=== PATIENT | female | born 1935 | race Caucasian/White ===

== ENCOUNTER 2019-11-27 12:01 | Inpatient (IN) | payer MEDICARE, BC ==
[2019-11-27 12:37] LABS: ABSOLUTE LYMPHOCYTES (AUTO) 0.9 10^3/uL (0.5-4.7); ABSOLUTE MONOCYTES (AUTO) 0.4 10^3/uL (0.1-1.4); BASOPHILS % (AUTO) 0.4 % (0-2); EOSINOPHILS % (AUTO) 0.6 % (0-6); HEMATOCRIT 37.2 % (36.0-47.0); HEMOGLOBIN 12.5 g/dL (12.0-15.5); LYMPHOCYTES % (AUTO) 20.3 % (13-45); MEAN CORPUSCULAR HEMOGLOBIN 32.6 pg (27.0-33.4); MEAN CORPUSCULAR HGB CONC 33.7 g/dL (32.0-36.0); MEAN CORPUSCULAR VOLUME 97 fl (80-97); MONOCYTES % (AUTO) 8.6 % (3-13); PLATELET COUNT 171 10^3/uL (150-450); RED BLOOD COUNT 3.84 10^6/uL (3.72-5.28); RED CELL DISTRIBUTION WIDTH 14.8 % (11.5-14.0); SEGMENTED NEUTROPHILS % (AUTO) 70.1 % (42-78); TOTAL CELLS COUNTED % (AUTO) 100 %; WHITE BLOOD COUNT 4.2 10^3/uL (4.0-10.5)
[2019-11-27 12:54] LABS: ALBUMIN 4.2 g/dL (3.5-5.0); ALKALINE PHOSPHATASE 101 U/L (38-126); ASPARTATE AMINO TRANSFERASE 41 U/L (14-36); BILIRUBIN,TOTAL 0.5 mg/dL (0.2-1.3); BLOOD UREA NITROGEN 19 mg/dL (7-20); CALCIUM 9.6 mg/dL (8.4-10.2); CARBON DIOXIDE 30 mmol/L (22-30); CREATINE KINASE 59 U/L (30-135); GLUCOSE 112 mg/dL (75-110); POTASSIUM 4.5 mmol/L (3.6-5.0); TOTAL PROTEIN 7.3 g/dL (6.3-8.2)
[2019-11-27 13:00] LABS: CHLORIDE 105 mmol/L (98-107)
[2019-11-27 13:03] LABS: ANION GAP 4 (5-19)
[2019-11-27 13:06] LABS: CREATINE KINASE MB 1.44 ng/mL (<4.55)
[2019-11-27 13:08] LABS: TROPONIN I < 0.012 ng/mL
--- NOTE | 2019-11-27 13:15 | ER Document Report ---
ED General - General Chief Complaint: Weakness Stated Complaint: WEAKNESS Time Seen by Provider: 11/27/19 13:13 Primary Care Provider: MITRA KITCHEN MD [Primary Care Provider] - Follow up as needed Notes: 84-year-old female presents the emergency department stating that when she woke up this morning around 8 AM she tried to get out of bed but was unable to stand because her legs were so weak and she states her toes felt "sticky." Patient states she went back to bed and then tried getting up again a little bit later in her leg still felt too weak so she came to the emergency department. Patient does state that she is feeling somewhat better now but not completely better. States she is still not walking normally. Denies any current numbness or tingling, denies any lateralizing weakness. Denies any blurry vision or slurred speech. Patient's daughter states the patient fell down some steps landing on her buttocks at the end of August, she is concerned that the patient should have had an MRI then even though the patient's x-rays were negative. Patient denies saddle anesthesia, bowel or bladder dysfunction or difficulty raising her feet. Admits some persistent pain in her hips since the fall. - Related Data Allergies/Adverse Reactions: Sulfa (Sulfonamide Antibiotics) Allergy (Verified 03/01/13 14:37) Past Medical History - General Information source: Patient - Social History Smoking Status: Never Smoker Frequency of alcohol use: None Drug Abuse: None Family History: Other - history of kidney stones - Past Medical History Cardiac Medical History: Reports: Hx Hypercholesterolemia, Hx Hypertension Pulmonary Medical History: Reports: Hx Bronchitis - chronic Neurological Medical History: Reports: Hx Migraine GI Medical History: Reports: Hx Gastroesophageal Reflux Disease Past Surgical History: Reports: Hx Hysterectomy - Immunizations Hx Diphtheria, Pertussis, Tetanus Vaccination: Yes Review of Systems - Review of Systems Constitutional: See HPI, Weakness EENT: No symptoms reported Musculoskeletal: See HPI Neurological/Psychological: See HPI -: Yes All other systems reviewed and negative Physical Exam - Vital signs Vitals: Temp Pulse Resp BP Pulse Ox 97.3 F 66 14 146/75 H 99 11/27/19 12:15 11/27/19 12:15 11/27/19 12:15 11/27/19 12:15 11/27/19 12:15 Interpretation: Hypertensive - Notes Notes: GENERAL: Alert, interacts well. No acute distress. HEAD: Normocephalic, atraumatic EYES: Pupils equal, round and reactive to light, extraocular movements intact. ENT: Oral mucosa moist, tongue midline. NECK: Full range of motion, supple, trachea midline. LUNGS: Clear to auscultation bilaterally, no wheezes, rales or rhonchi, no respiratory distress. HEART: Regular rate and rhythm, no murmurs, gallops, rubs. ABDOMEN: Soft, nontender, nondistended, bowel sounds present in all 4 quadrants. EXTREMITIES: Moves all 4 extremities spontaneously, no edema, radial and dorsalis pedis pulses 2/4 bilaterally. No cyanosis. NEUROLOGICAL: Alert and oriented x3, normal speech, cranial nerves II through XII grossly intact, biceps and patellar DTRs 2+ bilaterally. 5 out of 5 great toe raising strength bilaterally. No difficulty with [id number] testing ho wever she does have a very wide-based gait when she walks, asked hold onto my hand for assistance. Has ataxia with hqfgud-[id number]-[id number] testing bilaterally. PSYCH: Normal mood, normal affect. SKIN: Warm, Dry, normal turgor. Course - Re-evaluation Re-evalutation: 11/27/19 18:02 CBC unremarkable, CMP grossly unremarkable, troponin negative x2, urinalysis shows small leukocyte esterase but she does not have any symptoms. CT scan of t he head suggest possible normal pressure hydrocephalus however this would not explain a rapid change in the patient's gait and should not have caused acute development of normal pressure hydrocephalus overnight. I am concerned for possible cerebellar stroke. MRI is performed and shows left basal ganglia lacunar infarct which appears acute. I have discussed this patient with Dr. Prakash who agrees to accept the patient to his service for an acute stroke. Patient is not a candidate for TPA as she is a wake-up stroke who did not present to the hospital until 4 hours after her symptoms initially onset and this is not a large vessel occlusion. She is not a candidate for clot retrieval. Discussed both of these with patient, daughter and granddaughter who is a nurse. They understand why she is not receiving TPA. - Vital Signs Vital signs: Temp Pulse Resp BP Pulse Ox 97.3 F 58 L 14 143/57 H 100 11/27/19 12:15 11/27/19 17:14 11/27/19 17:18 11/27/19 17:18 11/27/19 17:18 - Laboratory Result Diagrams: 11/27/19 12:20 11/27/19 12:20 Laboratory results interpreted by me: 11/27/19 11/27/19 11/27/19 12:20 12:20 12:45 RDW 14.8 H Anion Gap 4 L Glucose 112 H AST 41 H Ur Leukocyte Esterase SMALL H - EKG Interpretation by Me Additional EKG results interpreted by me: 11/27/19 13:15 EKG shows sinus rhythm at a rate of 62, normal axis, normal intervals, no ST segment elevations or depressions, there are T wave inversions noted in V2 and V3 per my interpretation. Discharge - Discharge Clinical Impression: Acute CVA (cerebrovascular accident), Basal ganglia infarction, Infarction of left basal ganglia Condition: Stable Disposition: ADMITTED INPATIENT Admitting Provider: Mallika (Hospitalist) Unit Admitted: IMCU Referrals: MITRA KITCHEN MD [Primary Care Provider] - Follow up as needed ED [employer]/Exc Criteria - Date/Time patient last known well: Date/Time: 11/26/20192099 - Date/Time patient arrived in ED: _: 11/27/2019 8:00 - Inclusion Criteria: 1: Patient presented to ED within 3 hours of acute ischemic stroke symptom onset? -: No 2: Did baseline CT exclude intracranial hemorrhage and/or other risk factors? -: Yes 3: Is the age of the patient 18 years of age or greater? -: Yes : If any of the above questions are answered "NO" then stop, patient is not a candidate for Alteplase, : If all of the above questions are answered "YES" then continue with Exclusion Criteria. - Exclusion Criteria: 1: Is there evidence of intracranial hemorrhage on baseline CT? -: No 2: Is there suspicion of subarachnoid hemorrhage (even if CT negative)? -: No 3: Is there a history of serious head trauma, recent previous stroke or WA within 3 months? -: No 4: Does the patient have a clinical presentation consistent with WA or post-WA pericarditis? -: No 5: Is there history of intracranial hemorrhage? -: No 6: On repeated measurement is Systolic BP greater than 185mmHg or Diastolic BP greater that 110 mmHg and is aggressive treatment needed to reduce blood pressu re to these limits (e.g. constant infusion of an anti-hypertensive)? -: No 7: Did the patient awake with stroke symptoms? -: Yes 8: Has the patient had a lumbar puncture or an arterial puncture at a non- compressile site within 7 days? -: No 9: With in the last 14 days did the patient have surgery or major trauma? -: No 10: Is the patient or less than 2 weeks? -: No 11: Was there any active bleeding or acute trauma? -: No 12: Does the patient have intracranial neoplasm, arteriovenous malformation or aneurysm? -: No 13: Does the patient have abnormal glucose (less than 50 or greater than 400mg/dl)? Record glucose in Comment. -: No 14: Patient has rapidly improving symptoms at the time Alteplase is to be Administered. -: No 15: Does the patient have any risks for bleeding, including but not limited to: a.: Current use of Coumadin with PT greater than 15 seconds or INR greater than 1.7. b.: Current use of Pradaxa (Dabigatran). c.: Heparin administereed within the past 48 hours and PTT elevated. d.: Platelet count less than 100,000/mm. e.: Major surgery or serious trauma within 14 days. f.: Gastrointestinal or gynecological urinary bleeding within 14 days. g.: Myocardial Infarction (WA) within 3 months. -: No : If the answer to any of the above questions is "YES" then stop, the patie nt is not a candidate for Alteplase. : If the answer to all of the above questions is "NO" then the patient may be eligible for the Administration of Alteplase. : If the patient is noted to have seizure activity at onset of Stroke symptoms; Consult Neurologist for further evaluation. - The patient is: -: Included and is eligible to receive Alteplase. *Initiate bed placement at higher level of care* --: No Reviewed risks & benefits of thrombolytic therapy: I have reviewed the risks and benefits of thrombolytic therapy with the patient and/or his/her family. -: Excluded and not eligible to receive Alteplase for the above exclusions. --: Yes - wake-up stroke -: Excluded and not eligible to receive Alteplase for other reasons (specify in comments): - Diagnosis of TIA: -: Patient presented with transient symptoms that are now resolved and no other neurologic findings are currently present. List symptoms in comments. -: Patient is NOT a candidate for tPA. -: ____(put name in comment) has been consulted for admission and continued evaluation of risk factor assessment. ED NIH Stroke Scale - NIH Stroke Scale When completed:: Before Alteplase *: 1. NIH scale should be completed with appropriate accompanying assessment tools. *: 2. The NIH should reflect what the patient is capable of doing and should not be coached by the clinician. 1a. Level of Consciousness: 0=Alert;keenly responsive -: 1=Drowsy -: 2=Obtunded -: 3=Coma/unresponsive or reflex to noxious stimuli. 1a. Responses: 0 1b. Orientation Questions: a. What month is it? -: b. How old are you? -: 0=Answers both questions correctly. -: 1=Answers one question correctly or patient is intubated or has orotracheal trauma. -: 2=Answers neither question correctly. 1b. Responses: 0 1c. Response to commands: a. Open and close eyes? -: b. Gel Coater and release hand? -: Credit is given despite weakness. Demonstration of task is permitted. Substitute command if hands cannot be used. -: 0=Performs both tasks correctly -: 1=Performs one task correctly -: 2=Performs neither task correctly 1c. Responses: 0 2. Gaze: Establish eye contact and instruct patient to "Follow my finger" -: 0=Normal -: 1=Partial gaze palsy. Gaze is abnormal in one or both eyes, but where forced deviation or total gaze paresis is not present. -: 2=Forced deviation or total gaze paresis. 2. Responses: 0 3. Visual Chaudhary: Sees fingers in all four quadrants. -: 0=No visual loss. -: 1=Partial hemianopsia. -: 2=Complete hemianopsia. -: 3=Bilateral hemianopsia (including Cortical blindness) 3. Responses: 0 4. Facial Movement: Instruct patient to: -: a. Show me your teeth -: b. Raise your eyebrows -: c. Close your eyes -: d. Smile -: 0=Normal symmetrical movement -: 1=Minor paralysis (flattened nasolabial fold, asymmetry on smiling). -: 2=Partial paralysis (total or near total paralysis of lower face). -: 3=Complete paralysis of upper and lower face 4. Responses: 0 5. Motor functions (left arm): Alternate sides and extend each arm with palms down (90 degrees if sitting or 45 degrees for supine). -: 0=No drift;limb holds for full 10 seconds. -: 1=Drift; limb holds but drifts down before full 10 seconds, but does not hit bed. -: 2=Some effort against gravity; limb cannot get to or maintain position. -: 3=No effort against gravity; limb falls. -: 4=No movement. -: UN=Amputation, joint fusion, explain in comments. 5. Responses (left arm): 0 5. Motor Functions (right arm): Alternate sides and extend each arm with palms down (90 degrees if sitting or 45 degrees for supine). -: 0=No drift;limb holds for full 10 seconds. -: 1=Drift; limb holds but drifts down before full 10 seconds, but does not hit bed. -: 2=Some effort against gravity; limb cannot get to or maintain position. -: 3=No effort against gravity; limb falls. -: 4=No movement. -: UN=Amputation, joint fusion, explain in comments. 5. Responses (right arm): 0 6. Motor Functions (left leg): With patient lying supine, alternate sides and extend each leg (30 degrees always while supine). -: 0=No drift, leg holds position for full 5 seconds -: 1=Drift; leg falls before full 5 seconds but does not hit bed. -: 2=Some effort against gravity, leg falls to bed but some effort against gravity. -: 3=No effort against gravity, leg falls to bed immediately. -: 4=No movement. -: UN=Amputation, joint fusion; explain in comments. 6. Responses (left leg): 0 6. Motor Functions (right leg): With patient lying supine, alternate sides and extend each leg (30 degrees always while supine). -: 0=No drift, leg holds position for full 5 seconds -: 1=Drift; leg falls before full 5 seconds but does not hit bed. -: 2=Some effort against gravity, leg falls to bed but some effort against gravity. -: 3=No effort against gravity, leg falls to bed immediately. -: 4=No movement. -: UN=Amputation, joint fusion; explain in comments. 6. Responses (right leg): 0 7. Limb Ataxia: With eyes open instruct patient to: -: a. "Touch your finger to your nose". -: b. "Touch your heel to your aponte" -: 0=Absent -: 1=Present in one limb. -: 2=Present in two limbs. -: UN=Amputation or joint fusion; explain in comments. 7. Responses: 2 7. If ataxia present choose as appropriate: Left arm, Right arm 8. Sensory: Test sensation using pinprick or noxious stimuli. Test as many body parts as possible. -: 0=Normal;no sensory loss -: 1=Mile to moderate sensory loss (patient feels pin prick but is less sharp on affected side). -: 2=Severe or total sensory loss. 8. Responses: 0 9. Best Language: Instruct patient to: -: a. "Describe what you see in this picture." -: b. "Name the items in this picture." -: c. "Read these sentences." -: 0=No aphasia, normal -: 1=Mild to moderate aphasia. -: 2=Severe aphasia -: 3=Mute, global aphasia, no usable speech or auditory comprehension. 9. Responses: 0 10. Articulation, Dysarthia: Instruct patient to: -: "Read these words" or "Repeat these words" -: 0=Normal -: 1=Mild to moderate; patient may slur some words but can be understood without difficulty. -: 2=Severe; patients speech so slurred as to be unintelligible in the absence of dysphasia. -: UN=Intubated or other physical barrier, explain in comments. 10. Responses: 0 11. Extinction or inattention: 0=No abnormality -: 1= Visual, tactile, auditory, spatial, or personal inattention or extinction to bilateral simulation in one or the sensory modalities. -: 2=Profound tin-inattention or tin-inattention to more than one modality; does not recognize own hand. 11. Responses: 0 Total Score: 2
[2019-11-27 13:21] LABS: APPEARANCE,URINE CLEAR; BILIRUBIN,URINE NEGATIVE (NEGATIVE); COLOR,URINE STRAW; GLUCOSE, URINE NEGATIVE (NEGATIVE); KETONES,URINE NEGATIVE (NEGATIVE); LEUKOCYTE ESTERASE,URINE SMALL (NEGATIVE); NITRITE,URINE NEGATIVE (NEGATIVE); PROTEIN,URINE NEGATIVE (NEGATIVE); URINE SPECIFIC GRAVITY 1.006; UROBILINOGEN,URINE NEGATIVE mg/dL (<2.0)
[2019-11-27] MEDS ORDERED: RINGERS SOLUTION,LACTATED 1,000 ML IV ONE (13:53)
--- NOTE | 2019-11-27 15:12 | RADIOLOGY REPORT (SQ) ---
EXAM DESCRIPTION: CT HEAD WITHOUT IMAGES COMPLETED DATE/TIME: 11/27/2019 1:48 pm REASON FOR STUDY: ataxia COMPARISON: None. TECHNIQUE: Axial images acquired through the brain without intravenous contrast. Images reviewed wi th bone, brain and subdural windows. Additional sagittal and coronal reconstructions were generated. Images stored on PACS. All CT scanners at this facility use dose modulation, iterative reconstruction, and/or weight based d osing when appropriate to reduce radiation dose to as low as reasonably achievable (ALARA). [facility]: Dose Right [facility]: CareDose [facility]: Dose Right [facility]: Teradose 4D [facility]: Smart [employer] RADIATION DOSE: CT Rad equipment meets quality standard of care and radiation dose reduction techniq ues were employed. CTDIvol: 53.2 mGy. DLP: 911 mGy-cm. mGy. LIMITATIONS: None. FINDINGS: VENTRICLES: The lateral ventricles and 3rd ventricle are mildly prominent, out of proporti on with sulci. There is upward bowing of the corpus callosum with mild thinning on sagittal view. N o evidence of acute hydrocephalus or herniation. CEREBRUM: No masses. No hemorrhage. No midline shift. No evidence for acute infarction. Normal gra y-white matter differentiation. Mild patchy periventricular and deep white matter hypodense attenuat ion consistent with mild chronic small vessel ischemic change. No evidence of acute territorial infa rct. CEREBELLUM: No masses. No hemorrhage. No alteration of density. No evidence for acute infarction. EXTRAAXIAL SPACES: No fluid collections. No masses. ORBITS AND GLOBE: No intra- or extraconal masses. Normal contour of globe without masses. CALVARIUM: No fracture. PARANASAL SINUSES: No fluid or mucosal thickening. SOFT TISSUES: No mass or hematoma. OTHER: No other significant finding. IMPRESSION: 1. No acute intracranial hemorrhage, mass, or evidence of acute territorial infarct. 2. Prominence of the ventricles out of proportion with sulcal prominence, nonspecific however could b e seen with normal-pressure hydrocephalus. No evidence of acute obstructive hydrocephalus or herniat ion. 3. Mild chronic small vessel ischemic change. EVIDENCE OF ACUTE STROKE: NO. COMMENT: Quality ID # [id number]: Final reports with documentation of one or more dose reduction techniques (e.g., Automated exposure control, adjustment of the mA and/or kV according to patient size, use of iterative reconstruction technique) TECHNICAL DOCUMENTATION: JOB ID: [id number] 2010 [employer]- All Rights Reserved Reading location - IP/workstation name: [email or web address]
--- NOTE | 2019-11-27 17:33 | RADIOLOGY REPORT (SQ) ---
EXAM DESCRIPTION: MRI HEAD WITHOUT IMAGES COMPLETED DATE/TIME: 11/27/2019 5:10 pm REASON FOR STUDY: new onset ataxia COMPARISON: None. TECHNIQUE: Multiplanar imaging includes non-contrasted T1, T2, FLAIR, and diffusion with ADC map seq uences. Images stored on PACS. LIMITATIONS: There is motion artifact on some of the sequences. FINDINGS: ANATOMY: No anomalies. Normal vascular flow voids. Pituitary fossa normal. CSF SPACES: The lateral ventricles are prominent. CEREBRUM: Sulci and gyri normal in size and contour. Normal white matter signal on FLAIR imaging. No evidence of hemorrhage, mass, or extraaxial fluid collection. POSTERIOR FOSSA: No signal alteration. No hemorrhage. No edema, masses or mass effect. Internal andi tory canals, cerebello-pontine angles, mastoids normal. DIFFUSION IMAGING: Small focal area of abnormal diffusion in the left basal ganglia. ORBITS: No masses. Globes normal. PARANASAL SINUSES: No fluid levels. Mucosa normal. OTHER: No other significant finding. IMPRESSION: 1. Prominent lateral ventricles. May be secondary to atrophy. May correlate with norm al pressure hydrocephalus. 2. There appears to be a small acute lacunar infarction in the left basal ganglia. EVIDENCE OF ACUTE STROKE: NO. TECHNICAL DOCUMENTATION: JOB ID: [id number] 2010 [email or web address]- All Rights Reserved Reading location - IP/workstation name: [email or web address]
[2019-11-27] MEDS ORDERED: ASPIRIN 325 MG TABLET PO ONE (17:48)
[2019-11-27] MEDS ORDERED: ACETAMINOPHEN 325 MG TABLET PO PRN (18:35)
[2019-11-27] MEDS ORDERED: MAGNESIUM HYDROXIDE SUSP 30 ML UDCUP PO PRN (18:35)
--- NOTE | 2019-11-27 18:35 | PDOC H&P ---
History of Present Illness Admission Date/PCP: MITRA KITCHEN MD Patient complains of: weak legs adversely affecting gait History of Present Illness: MALLIKA DUVAL is a 84 year old female with a history of hypertension and hypercholesterolemia woke up this morning at about 8:00. She still felt tired and fell back asleep. Approximately 30 minutes later she woke up again. She tried to walk to the window to look for storm damage. Her legs felt quite weak. She states she had to hold onto furniture when getting back to bed. At that time she noted a small headache as well. She does report a history of migraine and she did not think much of it. At approximately 9:15 to 9:30 AM she woke up again. This time her toes felt "funny ", her fingers were tingling and both legs were weak. She clearly does not feel that this was unilateral. She called her granddaughter. It was approximately 11 AM when rescue arrived. Since being at the hospital she reports feeling better. She feels that her legs are not as weak. Her toes in fact are normal. She does not report any dizziness. She did ambulate with the nursing staff and still felt somewhat unsteady on her feet but did reasonably well. Evaluation in the emergency department revealed normal sin us rhythm with mild hypertension. MRI scan revealed a small acute lacunar infarct in the left basal ganglia. Of note she did have prominent lateral ventricles suggesting possible normal pressure hydrocephalus. Laboratory studies are unremarkable. The patient will be admitted to the hospital service for acute ischemic stroke. Ongoing work-up including carotid Dopplers, lipid profile, TSH and hemoglobin A1c will be performed. The patient's swallow is normal and she does not appear to have any deficits requiring occupational therapy but physical therapy will be ordered. 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 Past Medical History Cardiac Medical History: Reports: Hyperlipidema, Hypertension Pulmonary Medical History: Reports: Bronchitis - chronic, Other - Seasonal allergies Neurological Medical History: Reports: Migraine GI Medical History: Reports: Gastroesophageal Reflux Disease Musculoskeltal Medical History: Reports: Arthritis Past Surgical History Past Surgical History: Reports: Hysterectomy Social History Information Source: Patient, Relative Lives with: Spouse/Significant other Smoking Status: Never Smoker Electronic Cigarette use?: No Frequency of Alcohol Use: None Hx Recreational Drug Use: No Hx Prescription Drug Abuse: No - Advance Directive Resuscitation Status: Full Code Surrogate healthcare decision maker:: The patient's would be the dedicated decision maker Family History Family History: CAD - Myocardial infarction, Malignancy - Esophageal cancer, Thyroid Disfunction, Other - history of kidney stones Parental Family History Reviewed: Yes Children Family History Reviewed: Yes Sibling(s) Family History Reviewed.: Yes Medication/Allergy Home Medications: Aspirin 1 tab PO DAILY 03/01/13 Butalbital/Acetaminophen [Bupap Tablet] 1 cap PO PRN PRN 03/01/13 Cetirizine HCl [Zyrtec 10 mg Tablet] 1 tab PO DAILY 03/01/13 Ciprofloxacin HCl [Cipro 500 mg Tablet] 500 mg PO BID #20 tablet 03/01/13 Metoprolol Succinate 1 tab PO DAILY 03/01/13 Omeprazole 1 tab PO DAILYP PRN 03/01/13 Oxycodone HCl/Acetaminophen [Percocet 5-325 mg Tablet] 1 - 2 tab PO Q4H PRN #15 tablet 03/01/13 Promethazine HCl [Phenergan 25 mg Tablet] 1 - 2 tab PO Q6H PRN #15 tablet 03/01/13 Allergies/Adverse Reactions: Sulfa (Sulfonamide Antibiotics) Allergy (Verified 03/01/13 14:37) Review of Systems All systems: reviewed and no additional remarkable complaints except as stated Constitutional: PRESENT: fatigue Musculoskeletal: PRESENT: other - Arthritic right shoulder, sore coccyx Neurological: PRESENT: abnormal gait Allergic/Immunologic: PRESENT: seasonal rhinorrhea Physical Exam Vital Signs: Temp Pulse Resp BP Pulse Ox 97.3 F 58 L 13 151/72 H 99 11/27/19 12:15 11/27/19 17:14 11/27/19 18:01 11/27/19 18:01 11/27/19 18:01 Intake & Output 11/26/19 11/27/19 11/28/19 06:59 06:59 06:59 Intake Total 1000 Balance 1000 Weight 76.4 kg General appearance: PRESENT: no acute distress, cooperative, well-developed, well-nourished Head exam: PRESENT: atraumatic, normocephalic Eye exam: PRESENT: conjunctiva pink, EOMI, PERRLA. ABSENT: scleral icterus Ear exam: PRESENT: normal external ear exam. ABSENT: bleeding, drainage Mouth exam: PRESENT: dry mucosa, neck supple, tongue midline Neck exam: ABSENT: carotid bruit, JVD, lymphadenopathy Respiratory exam: PRESENT: clear to auscultation pravin, symmetrical, unlabored. ABSENT: accessory muscle use, rales, rhonchi, tachypnea, wheezes Cardiovascular exam: PRESENT: RRR, +S1, +S2. ABSENT: bradycardia, diastolic murmur, irregular rhythm, systolic murmur, tachycardia Pulses: PRESENT: normal radial pulses, normal dorsalis pedis pul GI/Abdominal exam: PRESENT: normal bowel sounds, soft. ABSENT: distended, guarding, tenderness Rectal exam: PRESENT: deferred Gentrourinary exam: ABSENT: indwelling catheter Extremities exam: ABSENT: joint swelling, pedal edema Musculoskeletal exam: PRESENT: normal inspection. ABSENT: deformity, dislocation Neurological exam: PRESENT: alert, awake, oriented to person, oriented to place, oriented to time, oriented to situation, reflexes normal - Patella and biceps reflexes, CN II-XII grossly intact, other - I did not ambulate the patient at this encounter. ABSENT: altered, motor sensory deficit - At the time of the exam the patient in fact had excellent motor strength. 5/5 in legs and arms. Excellent gas flow regulator strength. Psychiatric exam: PRESENT: appropriate affect, normal mood. ABSENT: agitated, anxious Focused psych exam: ABSENT: delusional, paranoid, restlessness Skin exam: PRESENT: dry, normal color, warm. ABSENT: rash Results Laboratory Results: 11/27/19 12:20 11/27/19 12:20 11/27/19 11/27/19 11/27/19 12:20 12:20 12:45 WBC 4.2 RBC 3.84 Hgb 12.5 Hct 37.2 MCV 97 MCH 32.6 MCHC 33.7 RDW 14.8 H Plt Count 171 Seg Neutrophils % 70.1 Sodium 139.1 Potassium 4.5 Chloride 105 Carbon Dioxide 30 Anion Gap 4 L BUN 19 Creatinine 0.59 Est GFR ( Amer) > 60 Glucose 112 H Calcium 9.6 Total Bilirubin 0.5 AST 41 H Alkaline Phosphatase 101 Total Protein 7.3 Albumin 4.2 Urine Color STRAW Urine Appearance CLEAR Urine pH 7.0 Ur Specific [place] 1.006 Urine Protein NEGATIVE Urine Glucose (UA) NEGATIVE Urine Ketones NEGATIVE Urine Blood NEGATIVE Urine Nitrite NEGATIVE Ur Leukocyte Esterase SMALL H Urine WBC (Auto) 3 Urine RBC (Auto) 0 11/27/19 11/27/19 11/27/19 12:20 12:20 16:22 Creatine Kinase 59 CK-MB (CK-2) 1.44 Troponin I < 0.012 < 0.012 Impressions: Head CT 11/27/19 13:53 IMPRESSION: 1. No acute intracranial hemorrhage, mass, or evidence of acute territorial infarct. 2. Prominence of the ventricles out of proportion with sulcal prominence, nonspecific however could be seen with normal-pressure hydrocephalus. No evidence of acute obstructive hydrocephalus or herniation. 3. Mild chronic small vessel ischemic change. EVIDENCE OF ACUTE STROKE: NO. Head MRI 11/27/19 15:24 IMPRESSION: 1. Prominent lateral ventricles. May be secondary to atrophy. May correlate with normal pressure hydrocephalus. 2. There appears to be a small acute lacunar infarction in the left basal ga nglia. EVIDENCE OF ACUTE STROKE: NO. Assessment and Plan - Diagnosis (1) Acute CVA (cerebrovascular accident) Is this a current diagnosis for this admission?: Yes Plan: MRI reveals an acute left basal ganglia lacunar infarct. At the time of this exam she had excellent strength in upper and lower extremities. We will continue her aspirin therapy. Carotid Doppler studies have been ordered. I did order a lipid profile (as well as hemoglobin A1c and TSH) to assess other risk factors. In addition she does have prominent ventricles. A work-up for normal pressure hydrocephalus can be carried out on an outpatient basis. Physical therapy will see the patient. I do not feel there is a need for occupational therapy or speech therapy at this time. (2) Hypertension Qualifiers: Hypertension type: essential hypertension Qualified Code(s): I10 - Essential (primary) hypertension Is this a current diagnosis for this admission?: Yes Plan: The patient is normally on metoprolol 25 mg daily and furosemide on an as needed basis. I will continue her metoprolol. I did add low-dose lisinopril. I will hold the lisinopril if her systolic blood pressures less than 120. We may likely discontinue the lisinopril based on her serial blood pressure measurements (3) Hypercholesterolemia Is this a current diagnosis for this admission?: Yes Plan: A lipid panel has been ordered. Her allergy list states that she is sensitive to statin therapy but yet she is on pravastatin. I will start simvastatin. Based on her lipid profile we will determine how to best utilize statin therapy versus other lipid-lowering agents. (4) Abnormal gait Is this a current diagnosis for this admission?: Yes Plan: The patient's primary acute complaint associated with the stroke is weakness. It is very interesting that her symptoms are bilateral. This includes the leg weakness, toe numbness and finger tingling. Clearly this does not make sense with the acute ischemic stroke noted on MRI. Physical therapy will be seeing the patient and I have a feeling that she will recover nicely. - Time Time Spent with patient: 35 or more minutes Medications reviewed and adjusted accordingly: Yes Anticipated Discharge Disposition: Home with Home Health Anticipated Discharge Timeframe: within 72 hours - Inpatient Certification Based on my medical assessment, after consideration of the patient's comorb idities, presenting symptoms, or acuity I expect that the services needed warrant INPATIENT care.: Yes I certify that my determination is in accordance with my understanding of Medicare's requirements for reasonable and necessary INPATIENT services [42 CFR 412.3e].: Yes Medical Necessity: Need Close Monitoring Due to Risk of Patient Decompensation, Need For Continuous Telemetry Monitoring Post Hospital Care: D/C Vision Specialist Documentation
--- NOTE | 2019-11-27 18:42 | EKG REPORT ---
SEVERITY:- BORDERLINE ECG - SINUS RHYTHM BORDERLINE T ABNORMALITIES, ANTERIOR LEADS : Confirmed by: Jose Valera MD 27-Nov-2019 18:42:31
[2019-11-27] MEDS ORDERED: ALBUTEROL SULFATE HFA (90 MCG/PUFF) 8 GM MDI IH PRN (18:48)
[2019-11-27] MEDS ORDERED: ASPIRIN 81 MG TABLET, ENT COATED PO SCH (22:00)
[2019-11-27] MEDS ORDERED: SIMVASTATIN 40 MG TABLET PO SCH (22:00)
[2019-11-27] MEDS: FLUTICASONE NASAL SPRAY 50 MCG/SPRY 120 SPRAY/16 GM NASL SCH (22:27)
[2019-11-28] MEDS ORDERED: PANTOPRAZOLE SODIUM 40 MG TABLET.DR PO SCH (06:00)
[2019-11-28 06:21] LABS: CHOLESTEROL 164.98 mg/dL (0-200); TRIGLYCERIDES 66 mg/dL (<150)
[2019-11-28 06:31] LABS: DIRECT LDL 93 mg/dL (<100)
--- NOTE | 2019-11-28 09:30 | RADIOLOGY REPORT (SQ) ---
EXAM DESCRIPTION: CAROTID DOPPLER IMAGES COMPLETED DATE/TIME: 11/27/2019 9:42 pm REASON FOR STUDY: Acute ischemic stroke COMPARISON: None. TECHNIQUE: Grayscale ultrasound, Doppler velocity and spectra, and color Doppler images acquired of the extra-cranial carotid and vertebral arteries. Images stored on PACS. LIMITATIONS: None. FINDINGS: RIGHT CAROTID CCA Velocities: Within normal limits. ICA Velocities Peak systolic 59 cm/s. End diastolic 19 cm/s. Proximal ICA/CCA peak systolic ratio 1.3. Grayscale demonstrates mild plaque at the carotid bulb without high-grade stenosis. LEFT CAROTID CCA Velocities: Within normal limits. ICA Velocities Peak systolic 63 cm/s. End diastolic 20 cm/s. Proximal ICA/CCA peak systolic ratio 1.5. Spectra normal. No significant plaque. VERTEBRAL ARTERIES: Antegrade flow. Normal waveforms. SUBCLAVIAN ARTERIES: Not imaged. OTHER: No other significant finding. IMPRESSION: NO HEMODYNAMICALLY SIGNIFICANT STENOSIS. COMMENT: Quality ID #[id number]: Velocity criteria are extrapolated from the diameter data as defined by t he Society of Radiologists in Ultrasound Consensus Conference. Radiology 2003: 229; 340-346. TECHNICAL DOCUMENTATION: JOB ID: [id number] 2010 [employer]- All Rights Reserved Reading location - IP/workstation name: [email or web address]
[2019-11-28] MEDS ORDERED: METOPROLOL SUCCINATE 25 MG TAB.SR.24H PO SCH (10:00)
[2019-11-28] MEDS ORDERED: CHOLECALCIFEROL (D3) 1,000 UNIT (25 MCG) TABLET PO SCH (10:00)
[2019-11-28] MEDS ORDERED: ENOXAPARIN SODIUM INJ 40 MG/0.4 ML DISP.SYRIN SUBCUT SCH (10:00)
[2019-11-28] MEDS ORDERED: LISINOPRIL 5 MG TABLET PO SCH ×2 (10:00)
[2019-11-28] MEDS: FLUTICASONE NASAL SPRAY 50 MCG/SPRY 120 SPRAY/16 GM NASL SCH (11:09)
--- NOTE | 2019-11-28 12:59 | PDOC DISCHARGE SUMMARY ---
Impression - Admit/DC Date/PCP Admission Date/Primary Care Provider: 11/27/19 19:12 MITRA KITCHEN MD Discharge Date: 11/28/19 - Discharge Diagnosis (1) Acute CVA (cerebrovascular accident) Is this a current diagnosis for this admission?: Yes (2) Hypertension Is this a current diagnosis for this admission?: Yes (3) Hypercholesterolemia Is this a current diagnosis for this admission?: Yes (4) Abnormal gait Is this a current diagnosis for this admission?: Yes - Additional Information Resuscitation Status: Full Code Discharge Diet: Cardiac Discharge Activity: Activity As Tolerated Referrals: [facility] [Outside] [facility] [Outside] MITRA KITCHEN MD [Primary Care Provider] - 12/13/19 3:15 pm Prescriptions: Pravastatin Sodium [Pravachol] 60 mg PO QHS #45 Pravastatin Sodium 60 mg PO QHS #45 tablet Lisinopril [Prinivil 5 mg Tablet] 5 mg PO DAILY #15 tablet Home Medications: Albuterol Sulfate [Proair HFA Inhalation Aerosol 8.5 gm MDI] 2 puff IH QIDP PRN 11/27/19 Cetirizine HCl [Zyrtec 10 mg Tablet] 10 mg PO DAILY 11/27/19 Fluticasone Propionate [Flonase Nasal [place] 50 Mcg/[place] 16 gm] 1 spray NASL QHS 11/27/19 Furosemide [Lasix 20 mg Tablet] 20 mg PO DAILYP PRN 11/27/19 Metoprolol Succinate [Toprol Xl 25 mg Tab.sr] 25 mg PO DAILY 11/27/19 Omeprazole 40 mg PO QAM 11/27/19 Potassium Chloride [Klor-Con 10 Meq Tablet ER] 10 meq PO DAILY 11/27/19 Albuterol Sulfate [Ventolin Hfa 8 gm Mdi] 2 puff IH Q4HP PRN inhaler 11/28/19 Aspirin [Aspirin 325 mg Tablet] 325 mg PO DAILY tablet 11/28/19 Cholecalciferol (Vitamin D3) [Vitamin D3 1000 Unit Tablet] 1,000 unit PO DAILY tablet 11/28/19 Fluticasone Propionate [Flonase Nasal [place] 50 Mcg/[place] 16 gm] 1 spray NASL Q12 spray.pump 11/28/19 Lisinopril [Prinivil 5 mg Tablet] 5 mg PO DAILY #15 tablet 11/28/19 Metoprolol Succinate [Toprol Xl 25 mg Tab.sr] 25 mg PO DAILY tab.sr.24h 11/28/19 Pravastatin Sodium 60 mg PO QHS #45 tablet 11/28/19 Pravastatin Sodium [Pravachol] 60 mg PO QHS #45 11/28/19 History of Present Illiness History of Present Illness: MALLIKA DUVAL is a 84 year old female with a history of hypertension and hypercholesterolemia woke up this morning at about 8:00. She still felt tired and fell back asleep. Approximately 30 minutes later she woke up again. She tried to walk to the window to look for storm damage. Her legs felt quite weak. She states she had to hold onto furniture when getting back to bed. At that time she noted a small headache as well. She does report a history of migraine and she did not think much of it. At approximately 9:15 to 9:30 AM she woke up again. This time her toes felt "funny ", her fingers were tingling and both legs were weak. She clearly does not feel that this was unilateral. She called her granddaughter. It was approximately 11 AM when rescue arrived. Since being at the hospital she reports feeling better. She feels that her legs are not as weak. Her toes in fact are normal. She does not report any dizziness. She did ambulate with the nursing staff and still felt somewhat unsteady on her feet but did reasonably well. Evaluation in the emergency department revealed normal sinus rhythm with mild hypertension. MRI scan revealed a small acute lacunar infarct in the left basal ganglia. Of note she did have prominent lateral ventricles suggesting possible normal pressure hydrocephalus. Laboratory studies are unremarkable. The patient will be admitted to the hospital service for acute ischemic stroke. Ongoing work-up including carotid Dopplers, lipid profile, TSH and hemoglobin A1c will be performed. The patient's swallow is normal and she does not appear to have any deficits requiring occupational therapy but physical therapy will be ordered. She will be seen by the stroke nurse and transitions coach builder. Hospital Course Hospital Course: Unremarkable hospital course. Patient was symptom free at discharge although there was the feeling of slightly decreased right hand dexterity. I also discussed the enlarged ventricles and the possibility of normal pressure hydrocephalus. They are going to follow-up with her primary care doctor and hopefully neurology. Physical Exam Vital Signs: Temp Pulse Resp BP Pulse Ox 97.6 F 74 20 149/57 H 100 11/28/19 07:49 11/28/19 08:00 11/28/19 08:00 11/28/19 08:00 11/28/19 08:00 Intake & Output 11/27/19 11/28/19 11/29/19 06:59 06:59 06:59 Intake Total 1240 Balance 1240 Weight 80 kg General appearance: PRESENT: no acute distress, cooperative, well-developed Respiratory exam: PRESENT: clear to auscultation pravin, symmetrical, unlabored. ABSENT: rales, rhonchi, tachypnea, wheezes Cardiovascular exam: PRESENT: RRR, +S1, +S2 GI/Abdominal exam: PRESENT: normal bowel sounds, soft. ABSENT: tenderness Musculoskeletal exam: PRESENT: ambulatory Neurological exam: PRESENT: alert, awake, oriented to person, oriented to place, oriented to time, oriented to situation, CN II-XII grossly intact, motor sensory deficit - The patient feels decreased dexterity in the right hand. Pt Skilled strength certainly was adequate. She could also be struggling with arthritic changes. Results Laboratory Results: WBC 4.2 10^3/uL (4.0-10.5) 11/27/19 12:20 RBC 3.84 10^6/uL (3.72-5.28) 11/27/19 12:20 Hgb 12.5 g/dL (12.0-15.5) 11/27/19 12:20 Hct 37.2 % (36.0-47.0) 11/27/19 12:20 MCV 97 fl (80-97) 11/27/19 12:20 MCH 32.6 pg (27.0-33.4) 11/27/19 12:20 MCHC 33.7 g/dL (32.0-36.0) 11/27/19 12:20 RDW 14.8 % (11.5-14.0) H 11/27/19 12:20 Plt Count 171 10^3/uL (150-450) 11/27/19 12:20 Lymph % (Auto) 20.3 % (13-45) 11/27/19 12:20 [place] % (Auto) 8.6 % (3-13) 11/27/19 12:20 Eos % (Auto) 0.6 % (0-6) 11/27/19 12:20 Baso % (Auto) 0.4 % (0-2) 11/27/19 12:20 Absolute Neuts (auto) 3.0 10^3/uL (1.7-8.2) 11/27/19 12:20 Absolute Lymphs (auto) 0.9 10^3/uL (0.5-4.7) 11/27/19 12:20 Absolute Monos (auto) 0.4 10^3/uL (0.1-1.4) 11/27/19 12:20 Absolute Eos (auto) 0.0 10^3/uL (0.0-0.6) 11/27/19 12:20 Absolute Basos (auto) 0.0 10^3/uL (0.0-0.2) 11/27/19 12:20 Seg Neutrophils % 70.1 % (42-78) 11/27/19 12:20 Sodium 139.1 mmol/L (137-145) 11/27/19 12:20 Potassium 4.5 mmol/L (3.6-5.0) 11/27/19 12:20 Chloride 105 mmol/L (98-107) 11/27/19 12:20 Carbon Dioxide 30 mmol/L (22-30) 11/27/19 12:20 Anion Gap 4 (5-19) L 11/27/19 12:20 BUN 19 mg/dL (7-20) 11/27/19 12:20 Creatinine 0.59 mg/dL (0.52-1.25) 11/27/19 12:20 Est GFR ( Amer) > 60 (>60) 11/27/19 12:20 Est GFR (MDRD) Non-Af > 60 (>60) 11/27/19 12:20 Glucose 112 mg/dL (75-110) H 11/27/19 12:20 Hemoglobin A1c % 5.4 % (4.7-6.0) 11/28/19 04:50 Calcium 9.6 mg/dL (8.4-10.2) 11/27/19 12:20 Total Bilirubin 0.5 mg/dL (0.2-1.3) 11/27/19 12:20 Direct Bilirubin 0.0 mg/dL (0.0-0.4) 11/27/19 12:20 Neonat Total Bilirubin Not Reportable 11/27/19 12:20 Neonat Direct Bilirubin Not Reportable 11/27/19 12:20 Neonat Indirect Bili Not Reportable 11/27/19 12:20 AST 41 U/L (14-36) H 11/27/19 12:20 ALT 28 U/L (<35) 11/27/19 12:20 Alkaline Phosphatase 101 U/L (38-126) 11/27/19 12:20 Creatine Kinase 59 U/L (30-135) 11/27/19 12:20 CK-MB (CK-2) 1.44 ng/mL (<4.55) 11/27/19 12:20 Troponin I < 0.012 ng/mL 11/27/19 16:22 Total Protein 7.3 g/dL (6.3-8.2) 11/27/19 12:20 Albumin 4.2 g/dL (3.5-5.0) 11/27/19 12:20 Triglycerides 66 mg/dL (<150) 11/28/19 04:50 Cholesterol 164.98 mg/dL (0-200) 11/28/19 04:50 LDL Cholesterol Direct 93 mg/dL (<100) 11/28/19 04:50 VLDL Cholesterol 13.0 mg/dL (10-31) 11/28/19 04:50 HDL Cholesterol 49 mg/dL (>40) 11/28/19 04:50 TSH 1.97 uIU/mL (0.47-4.68) 11/28/19 04:50 Urine Color STRAW 11/27/19 12:45 Urine Appearance CLEAR 11/27/19 12:45 Urine pH 7.0 (5.0-9.0) 11/27/19 12:45 Ur Specific [place] 1.006 11/27/19 12:45 Urine Protein NEGATIVE mg/dL (NEGATIVE) 11/27/19 12:45 Urine Glucose (UA) NEGATIVE mg/dL (NEGATIVE) 11/27/19 12:45 Urine Ketones NEGATIVE mg/dL (NEGATIVE) 11/27/19 12:45 Urine Blood NEGATIVE (NEGATIVE) 11/27/19 12:45 Urine Nitrite NEGATIVE (NEGATIVE) 11/27/19 12:45 Urine Bilirubin NEGATIVE (NEGATIVE) 11/27/19 12:45 Urine Urobilinogen NEGATIVE mg/dL (<2.0) 11/27/19 12:45 Ur Leukocyte Esterase SMALL (NEGATIVE) H 11/27/19 12:45 Urine WBC (Auto) 3 /HPF 11/27/19 12:45 Urine RBC (Auto) 0 /HPF 11/27/19 12:45 Squamous Epi Cells Auto <1 /HPF 11/27/19 12:45 Urine Ascorbic Acid NEGATIVE (NEGATIVE) 11/27/19 12:45 11/27/19 11/27/19 12:20 16:22 CK-MB (CK-2) 1.44 Troponin I < 0.012 < 0.012 Impressions: Head CT 11/27/19 13:53 IMPRESSION: 1. No acute intracranial hemorrhage, mass, or evidence of acute territorial infarct. 2. Prominence of the ventricles out of proportion with sulcal prominence, nonspecific however could be seen with normal-pressure hydrocephalus. No evidence of acute obstructive hydrocephalus or herniation. 3. Mild chronic small vessel ischemic change. EVIDENCE OF ACUTE STROKE: NO. Head MRI 11/27/19 15:24 IMPRESSION: 1. Prominent lateral ventricles. May be secondary to atrophy. May correlate with normal pressure hydrocephalus. 2. There appears to be a small acute lacunar infarction in the left basal ganglia. EVIDENCE OF ACUTE STROKE: NO. Carotid Doppler Study 11/27/19 18:41 IMPRESSION: NO HEMODYNAMICALLY SIGNIFICANT STENOSIS. Plan Health Concerns: Despite he documented infarct the bilateral symptoms are concerning for additional etiologies including cervical disc disease and normal pressure hydrocephalus Plan of Treatment: Follow-up with primary care provider as well as neurology as discussed Goals: Further evaluation of enlarged ventricles. Home health with physical and Occupational Therapy Time Spent: Greater than 30 Minutes Stroke Is this a Stroke Patient?: Yes Stroke Pt being discharged on Anti-thrombolytic therapy?: Yes Stroke Pt being discharged on Anti-coagulation therapy?: No Reason(s) for not prescribing Anti-coagulation therapy:: Not indicated Stroke Pt being discharged on Statins?: Yes Acute Heart Failure - Is this a Heart Failure Patient?: No
[2019-11-28 13:43] VITALS: BP 146/75
[2019-11-29] MEDS ORDERED: ASPIRIN 325 MG TABLET PO SCH (10:00)
== END 2019-11-28 16:44 | disposition home health service (06) | DRG 66 ==
LOC: ER 12:01 → EH 19:12 → 3S 11-28 02:44
PROVIDERS: ADMIT Hospitalist; ATTEND Hospitalist
DX: I63.22 Cerebral infarction due to unspecified occlusion or stenosis of basilar artery (principal); I10 Essential (primary) hypertension; E78.00 Pure hypercholesterolemia, unspecified; R26.9 Unspecified abnormalities of gait and mobility; G43.909 Migraine, unspecified, not intractable, without status migrainosus; K21.9 Gastro-esophageal reflux disease without esophagitis; M19.011 Primary osteoarthritis, right shoulder; J34.89 Other specified disorders of nose and nasal sinuses; R29.702 NIHSS score 2; Z79.82 Long term (current) use of aspirin; Z79.899 Other long term (current) drug therapy; Z82.49 Family history of ischemic heart disease and other diseases of the circulatory system; Z88.2 Allergy status to sulfonamides
CPT/HCPCS: 36415; 70450; 70551; 80053; 80061; 81001; 82550; 82553; 83036; 84443; 84484; 85025; 93005; 93010; 93880; 96360; 96361; 99285; J1650; J3490; J7120